=== PATIENT | male | born 1995 | race Caucasian/White ===

== ENCOUNTER 2020-02-05 01:06 | Emergency (ER) | payer SELFPAY ==
[~2020-02-05] VITALS: Ht 177.8 cm; Wt 70.7 kg
[2020-02-05 01:21] LABS: CLARITY,URINE CLEAR
[2020-02-05 01:25] VITALS: BP 131/78
[2020-02-05 01:25] LABS: COLOR,URINE DARK YELLOW; GLUCOSE, URINE (UA) NEGATIVE (NEGATIVE); PROTEIN,URINE NEGATIVE (NEGATIVE)
[2020-02-05 01:26] LABS: BACTERIA,URINE NEGATIVE /HPF; BILIRUBIN,URINE NEGATIVE (NEGATIVE); KETONES,URINE TRACE (NEGATIVE); LEUKOCYTE ESTERASE ,URINE NEGATIVE (NEGATIVE); NITRITE,URINE NEGATIVE (NEGATIVE); SQUAMOUS EPITHELIAL CELL,UR 0-2 /HPF; WBC,URINE RARE /HPF
--- NOTE | 2020-02-05 01:34 | ED Abdominal Pain ---
General Chief Complaint: Abdominal/GI Problems Stated Complaint: ABD PAIN Nursing Triage Note: pt reports abd pain started 1 hr ago after eating chili, lower abdomen and radiates to left epigastrum Sepsis Screen: No Definite Risk Source of Information: Patient History of Present Illness Date Seen by Provider: Feb 05, 2020 Time Seen by Provider: 01:20 Initial Comments 24-year-old male presents with sudden onset lower abdominal pain about 1 hour prior to arrival. Associated nausea with vomiting 1. Denies fever or chills. Did eat chili tonight, but several hours prior to onset of pain. Denies any recent illness. No associated chest pain, shortness of air or cough. No constipation or diarrhea, no bloody or tarry stools. Allergies and Home Medications Allergies Coded Allergies: zolpidem (Verified Allergy, Unknown, 02/05/20) Patient Home Medication List Home Medication List Reviewed: Yes Review of Systems Review of Systems Constitutional: No dizziness, No fever, No malaise, No weakness Respiratory: Denies Cough, Denies Shortness of Air Cardiovascular: Denies Chest Pain, Denies Edema, Denies Syncope Gastrointestinal: See HPI; Denies Abdomen Distended; Abdominal Pain; Denies Blood Streaked Stools, Denies Constipated, Denies Diarrhea, Denies Difficulty Swallowing; Nausea; Denies Poor Appetite; Vomiting Genitourinary: Denies Burning, Denies Drainage, Denies Frequency; Flank Pain; Denies Hematuria, Denies Incontinence, Denies Pain Musculoskeletal: No back pain, No joint pain Skin: No change in color, No rash Past [id number]-[id number]-Evoohs Hx Past Med/Social Hx: Reviewed Nursing Past Med/Soc Hx Patient Social History Alcohol Use: Denies Use Recreational Drug Use: No Smoking Status: Never a Smoker 2nd Hand Smoke Exposure: No Recent Foreign Travel: No Contact w/Someone Who Travel: No Recent Infectious Disease Expo: No Recent Hopitalizations: No Seasonal Allergies Seasonal Allergies: No Past Medical History Surgeries: No Respiratory: No Cardiac: No Neurological: Yes Headaches /Migraines Genitourinary: No Gastrointestinal: No Musculoskeletal: No Endocrine: No HEENT: No Cancer: No Psychosocial: No Integumentary: No Blood Disorders: No Physical Exam Vital Signs Vital Signs - First Documented 02/05/20 01:25 Temp 36.4 Pulse 102 Resp 15 B/P (MAP) 131/78 (95) Pulse Ox 98 Capillary Refill : Less Than 3 Seconds Height/Weight/BMI Height: '" Weight: lbs. oz. kg; 22.00 BMI Method: General Appearance: WD/WN, no apparent distress Respiratory: chest non-tender, lungs clear Cardiovascular: regular rate, rhythm, no edema Gastrointestinal: no organomegaly, no pulsatile mass; No distended, No guarding, No rebound; tenderness (diffuse, suprapubic and periumbilical); No hernia, No mass Extremities: normal range of motion, non-tender, no pedal edema Back: normal inspection, no vertebral tenderness, CVA tenderness (L) Progress/Results/Core Measures Results/Orders Lab Results Laboratory Tests Test 02/05/20 01:15 Range/Units Urine Color DARK YELLOW Urine Clarity CLEAR Urine pH 6.0 5-9 Urine Specific Summers >=1.030 1.016-1.022 Urine Protein NEGATIVE NEGATIVE Urine Glucose (UA) NEGATIVE NEGATIVE Urine Ketones TRACE H NEGATIVE Urine Nitrite NEGATIVE NEGATIVE Urine Bilirubin NEGATIVE NEGATIVE Urine Urobilinogen 0.2 < = 1.0 MG/DL Urine Leukocyte Esterase NEGATIVE NEGATIVE Urine RBC (Auto) TRACE H NEGATIVE Urine RBC 2-5 H /HPF Urine WBC RARE /HPF Urine Squamous Epithelial Cells 0-2 /HPF Urine Crystals NONE /LPF Urine Bacteria NEGATIVE /HPF Urine Casts NONE /LPF Urine Mucus LARGE H /LPF Urine Culture Indicated NO My Orders Orders - BRITTANY OSULLIVAN DO Urinalysis (02/05/20 01:15) Acute Abd Series (02/05/20 01:17) Ondansetron Oral Dissolve Tab (Zofran (02/05/20 01:36) Vital Signs/I&O 02/05/20 01:25 Temp 36.4 Pulse 102 Resp 15 B/P (MAP) 131/78 (95) Pulse Ox 98 Blood Pressure Mean: 95 Departure Impression Primary Impression: Abdominal pain Qualified Codes: R10.84 - Generalized abdominal pain Additional Impression: Nausea and vomiting Qualified Codes: R11.2 - Nausea with vomiting, unspecified Disposition: HOME, SELF-CARE Condition: Improved Departure-Patient Inst. Decision time for Depature: 01:38 Referrals: [facility] [place]YSIC[place] (PCP) Primary Care Physician Patient Instructions: Clear Liquid Diet, Gas and Bloating, Severe Abdominal Pain, Adult (DC) Add. Discharge Instructions: Follow up at the [facility] in 2 days if not improving, ER sooner if worse. All discharge instructions reviewed with patient and/or family. Voiced understanding. Scripts Ondansetron (Ondansetron Odt) 4 Mg Tab.rapdis 4 MG PO TID for Nausea, #10 TAB Prov: BRITTANY OSULLIVAN DO 02/05/20 BRITTANY OSULLIVAN DO Feb 05, 2020 01:34
[2020-02-05] MEDS ORDERED: DICYCLOMINE 10 MG/ML (BENTYL) 2 ML AMP IM STA (01:36)
[2020-02-05] MEDS ORDERED: ONDANSETRON 4 MG (ZOFRAN) ORAL DISSOLVE TAB PO STA (01:36)
[2020-02-05] MEDS ORDERED: ONDA4TAB11 PO (01:39)
--- NOTE | 2020-02-05 07:04 | Diagnostic Imaging Report ---
HISTORY: Abdominal pain TECHNIQUE: Frontal view of the chest. Upright and supine frontal views of the abdomen COMPARISON: None FINDINGS: Lung volumes are mildly large. No focal consolidation is seen. There is no pleural effusion or pneumothorax. The cardiac silhouette is normal in size. No distended loops of small bowel are seen. There is no large collection of free air. No acute osseous abnormalities seen. IMPRESSION: 1. No evidence of bowel obstruction or large collection of free air. 2. Large lung volumes with no acute pulmonary abnormalities. Dictated by: Dictated on workstation # [id number]
== END 2020-02-05 01:58 | disposition home or self-care (01) ==
LOC: ER FS 01:09
DX: R10.84 Generalized abdominal pain (principal); R11.2 Nausea with vomiting, unspecified; Z88.8 Allergy status to other drugs, medicaments and biological substances
CPT/HCPCS: 74022; 81000